=== PATIENT | male | born 1960 ===

== ENCOUNTER 2024-12-31 09:00 | Day surgery (SDC) | payer OTHER ==
[2024-12-23 09:34] LABS: URINE APPEARANCE Clear; URINE BILIRRUBIN Negative (NEGATIVE); URINE BLOOD Moderate; URINE COLOR Yellow; URINE GLUCOSE Negative (NEGATIVE); URINE KETONE Trace (NEGATIVE); URINE LEUKOCYTE Negative; URINE NITRATE Negative; URINE PROTEIN 30 (NEGATIVE); URINE UROBILINOGEN 0.2 E.U./dl
[2024-12-23 09:35] LABS: URINE BACTERIA 7.1 uL (0.0-1933); URINE EPITHELIAL CELLS 2.6 uL (0.0-38.8); URINE RBC 72.8 uL (0.0-20.8); URINE WBC 4.4 uL (0.0-23.2)
[2024-12-23 09:35] LABS: BASO % 0.5 % (0.1-1.2); EOS # 0.26 (0.04-0.54); EOS % 4.3 % (0.7-7.0); LYMPH # 1.31 (1.18-3.74); LYMPH % 21.9 % (19.3-53.1); MEAN PLATELET VOLUME 9.30 fl (9.4-12.4); MONO # 0.77 (0.24-0.82); NEUT # 3.58 (1.56-6.13); NEUT % 59.9 % (34.0-71.1); RED CELL DISTRIBUTION WIDTH 13.3 % (11.6-14.4)
[2024-12-23 09:38] LABS: MONO % 12.9 % (4.7-12.5)
[2024-12-23 09:47] LABS: URINE CAST 0.29 uL (0.0-1.40)
[2024-12-23 09:50] VITALS: BP 180/100
[2024-12-23 09:59] LABS: INR 0.94
[2024-12-23 10:29] LABS: ALT/SGPT 28.0 U/L (12-78); AST/SGOT 22.0 U/L (15-37); BILIRUBIN TOTAL 0.37 mg/dL (0.3-1.2); BUN CREA RATIO 17.0 (7.0-25.0); CREATININE SERUM 1.09 mg/dL (0.70-1.30); GFR 68.32; GLOBULINA 3.4 G/DL (2.4-3.5); GLUCOSE FASTING 95.0 mg/dL (65-100); OSMOLALITY SERUM 287.0 MOSM/KG (275-295)
[~2024-12-31 09:00] MED LIST: COZAAR25 MG PO; CRESTOR40 MG PO
[2024-12-31] MEDS ORDERED: CIPROFLOXACIN IN 5 % DEXTROSE 400 MG/200 ML PIGGYBAG IV ONE ×2 (12:09→13:45)
[2024-12-31] MEDS ORDERED: ONDANSETRON HCL 2 MG/ML VIAL ONE (14:44)
== END 2024-12-31 18:50 | disposition home or self-care (01) ==
LOC: CIR.AMB 09:00
PROVIDERS: ATTEND Specialist
DX: K40.90 Unilateral inguinal hernia, without obstruction or gangrene, not specified as recurrent (principal); Z88.0 Allergy status to penicillin; Z88.2 Allergy status to sulfonamides